=== PATIENT | male | born 1980 | race Caucasian/White ===

== ENCOUNTER 2024-04-13 09:32 | Emergency (ER) | payer BC, OTHER ==
[~2024-04-13] VITALS: Ht 172.7 cm; Wt 92.1 kg
[2024-04-13 09:32] VITALS: BP 146/98; PULSE 127; RESP 18; TEMP 97.8; O2SAT 97
[2024-04-13] MEDS ORDERED: ZOFRAN ODT ONE (10:22)
[2024-04-13] MEDS ORDERED: TORADOL ONE (10:22)
[2024-04-13] MEDS: ZOFRAN ODT SL STA (10:28)
[2024-04-13] MEDS: NORCO 10MG PO STA (10:28)
[2024-04-13] MEDS: TORADOL IM STA (10:28)
[2024-04-13 11:57] VITALS: BP 161/102; PULSE 91; RESP 18; TEMP 97.8; O2SAT 97
== END 2024-04-13 12:20 | disposition home or self-care (01) ==
LOC: ER 09:32
DX: S40.011A Contusion of right shoulder, initial encounter (principal); I10 Essential (primary) hypertension; V80.010A Animal-rider injured by fall from or being thrown from horse in noncollision accident, initial encounter; Y93.52 Activity, horseback riding; Y92.89 Other specified places as the place of occurrence of the external cause; Y99.8 Other external cause status
CPT/HCPCS: 99285; 72125; 96372; 73010; 73030; J1885